=== PATIENT | male | born 1975 | race Caucasian/White ===

== ENCOUNTER 2025-02-20 20:02 | Inpatient (IN) | payer MEDICARE, SELFPAY ==
--- OUTSIDE RECORDS SUMMARY | 2025-02-19 10:31 | XMS_ITS | Encounter Summary ---
Author Organization [facility] Address [id number] [place] [id number] Care Team Providers Care Auditing Manager Name Role Phone Physician, No Pcp Primary Care Provider Unavaila ble Reason for Visit * Reason Comments Psychiatric Evaluation Has schizophrenia Hearing voicesNo meds in a few days Encounter Details Date Type Department Care Team (Late st Contact Info) Description 02/19/2025 10:31 AM EDT - Present Emergency [facility] Emergency [address] [place] [id number] Bhargav Yanez MD [address] [place] [id number] Bhargav Sun MD [address] [place] [address] Maxwell De La Garza MD [address] [place] [address] Jacob Malone MD [address] [place] [address] José Luis Anand MD [address] [place] [address] Schizophrenia, unspecified type (CMS/HCC V24, CMS/HCC V28) (Primary Dx) Social History Tobacco Use Types Packs/Day Years Used Date Smoking Tobacco: Never Assessed Sex and Gender Information Value Date Recorded Sex Assigned at Not on file Legal Sex Male 8:41 PM EST Gender Identity Not on file Sexual Orientation Not on file documented as of this encounter Last Filed Vital Signs Vital Sign Reading Time Taken Comments Blood Pressure 121/78 02/20/2025 2:02 PM EDT Pulse 65 02/20/2025 2:02 PM EDT Temperature 36.8 C (98.2 F) 02/20/2025 2:02 PM EDT Respiratory Rate 16 02/20/2025 2:02 PM EDT Oxygen Saturation 100% 02/20/2025 2:02 PM EDT Inhaled Oxygen Concentration - - Weight 83.9 kg (185 lb) 02/19/2025 10:25 AM EDT Height 190.5 cm (6' 3 ) 02/19/2025 10:25 AM EDT Body Mass Index 23.12 02/19/2025 10:25 AM EDT documented in this encounter Functional Status * Calculated C-SSRS Risk Score (Lifetime/Recent) Answer Date of Assessment Author No Risk Indicated 02/20/2025 12:22 PM EDT Carmen Mccarty RN * [place] Suicide Severity Rating Scale (Screener/Recent Self-Report) Question Answer Date of Assessment Author 1. Wish to be (Past 1 Month) No 025 12:22 PM EDT Carmen Pompa RN 2. Non-Specific Active Suici shweta Thoughts (Past 1 Month) No 02/20/2025 12:22 PM EDT Jenny Pompa RN 6. Suicidal Behavior (Lifetime) No 12:22 PM EDT Carmen Pompa RN documented as of this encounter Progress Notes * Jerica Nazario - 02/20/2025 2:56 PM EDT BED FOUND - Patient accepted to [facility], unit M3, by Dr Roxana Velazquez for today 02/20/25; 5pm admission time * Jacob Malone MD - 02/20/2025 7:25 AM EDT ED Course as of 02/20/25 1504 Wed Feb 19, 2025 1221 Patient resting comfortably. Imaging studies revealing no acute pathology. Laboratory evaluation revealing any significant acute pathology at this time. Patient is otherwise medically cleared. Pending crisis evaluation. [JF] 1934 Presenting for auditory hallucinations x5yrs. He feels that meds aren't working. Denies SI/HI Pending bed search Signed out to night provider [XIAO] [facility] Feb 20, 2025 0205 S/o: Bed search. Here for chronic hallucinations. Can be discharged if they can't find placement. [BM] 0721 I, Dr. Thai Malone, have received signout for this patient from Dr. De La Garza at 0700 hrs. The patient is currently pending inpatient psychiatric bed search. [MG] 1503 Patient accepted to [facility] at my shift for admission at 1700 hrs. [MG] ED Course User Index [BM] Maxwell De La Garza MD [XIAO] Bhargav Sun MD [JF] Bhargav Yanez MD [MG] Jacob Malone MD Clinical Impressions as of 02/20/25 1504 Schizophrenia, unspecified type (CMS/HCC V24, CMS/HCC V28) Send to Specialty Department 1. Schizophrenia, unspecified type (CMS/HCC V24, CMS/HCC V28) Procedures Eriberto Salazar * Maxwell De La Garza MD - 02/20/2025 6:33 AM EDT EMERGENCY DEPARTMENT Transition of Care Note Room: NV-B/NV-B Patient: Eriberto Salazar PCP: No Pcp Physician Patient : 1975 Patient Department: [facility] EMERGENCY [address] [place] [id number] Dept: [phone] This patient's care was signed out to me by the offgoing provider. Please see her/his note for further details regarding initial presentation, history of present illness, physical exam, and medical decision making. Sign out: Pt is a bed search. Here for chronic hallucinations. Can be discharged if they can't findplacement. See ED course for further care events. Vitals: 02/20/25 0138 BP: 118/74 Pulse: 80 Resp: 16 Temp: 37 ??C (98.6 ??F) SpO2: 98% * Sara Medina RN - 02/19/2025 10:26 AM EDT Pt comes to ER with years of hearing voices that are not telling pt to harm himself or others butpt is looking for help. Denies medical complaints at this time. Pt a&ox4, ambulates with steadygait in triage. documented in this encounter Consult Notes * Kerwin York - 02/20/2025 12:00 PM EDT Images from the original note were not included. Behavioral Health Services - Mental Status Update Important times Time assessment started: 1145 Time of disposition: 1215 Location: [facility] Consulted case with: Tiffanie Disla LCSW Insurance information: Insurance: Medicare A+B Medicaid [place] Insurance ID: Med A+B [id number] Medicaid [place] [id number] Verified by: Tiffanie Disla Reason for Consultation / Presenting Problem: Eriberto Salazar is being seen today for a 24 hour re-evaluation due to their state wide bed search being exhausted. Patient denied SI/HI, he reported stillhaving auditory and visual hallucinations. He reported he was continuing to hear voices but couldn't understand them or hear them well. He reported that the visual hallucinations were starting to come into my dreams Collaterals, contact information, and engagement level: Therapist: None reported Psychiatrist: None reported PCP: None reported Family: None reported Other: None reported Mental Status Speech: WNL Eye Contact: Intermittent Motor Activity: WNL Mood: WNL Affect: Appropriate Sleep: Poor He reported that the voices could make it hard to sleep at times Appetite: WNL Memory: WNL Attention / Concentration: WNL Behavior: Cooperative and Calm Hallucinations: Auditory and Visual Delusions: None Thought Content: WNL SI: Denied HI: Denied Thought Process: WNL Orientation Impairment: None Insight: WNL Judgment: WNL Impulse Control: WNL Medications: Scheduled Meds: MEDSSCHEDULED[1] Continuous Infusions: MEDSCONTINUOUS[2] PRN Meds: MEDSPRN[3] Patient reported that he stopped taking his medications several ago after they ran out from his admission at [facility]. Risk Assessment: Self-Harm: None Suicidal Behavior: None Homicidal Behavior: None Physical Assault: None Physical Aggression: None Property Damage: None Verbal Aggression: None Family history of suicide: None reported Protective Factors: Patient is help-seeking. Patient is able to advocate for himself. Patient is able to access his basic needs. He has a plan for after placement, wants to connect with a gearcase assembler. Risk Factors: Patient is unhoused. Patient is not medication compliant. Patient does not have outpatient mental health providers. Patient is new to the area and does not know resources available. Suicide Risk: Based on patient's history and current presentation, their level of risk for intentional lethal harm is considered Low Safety Plan Completed: no No safety plan completed while patient is a bed search. Interventions: Risk/crisis assessment, active listening, empathetic listening. Response to interventions: Patient was cooperative, engaged, and aligned with speaking with crisis. DSM-5TR Diagnosis: F29 Unspecified Schizophrenia Spectrum and other Psychotic Disorder Plan: Based on the information above, patient would benefit from a voluntary inpatient psychiatric admission for safety and containment, mood stabilization, medication evaluation, therapeutic milieu, and coordination with outpatient and community supports. Upon discharge, patient would benefit from a plan to encourage medication compliance in the community. Should patient decide to discharge he does not need to be re-evaluated by behavioral health. Recommendations were discussed with requesting provider. It was a pleasure to assist Eriberto Salazar here at [facility]. This report is written and finalized by: Kerwin SABILLON process engineering intern Supervised by Lizz PHILLIPS, Behavioral Health Specialist power press supervisor [facility] (Tel): [phone] / : [phone] [1] [2] [3] Cosigned by Tiffanie Disla LCSW at 02/20/2025 12:26 PM EDT * Prashanth Pierre - 02/19/2025 1:54 PM EDTAssociated Order(s): IP CONSULT TO [facility] Images from the original note were not included. Behavioral Health Services - Crisis Assessment Important times Time of arrival: 10:21 Time of referral: 10:30 Time of readiness: 12:55 Time assessment started: 13:00 Time of disposition: 14:00 Location: Emergency Room (ER) Consulted case with: Tiffanie Disla NETEZZA ARCHITECT Insurance information: Insurance: Member Not Eligible, [place] - Per patient, he has [place] insurance Verified by: [facility] [place] - Tiffanie Disla Reason for Consultation / Presenting Problem: Eriberto Salazar is being seen today for a consultive service at the request of Bhargav Yanez MD to assess risk and identify appropriate level of care. Patient arrived reporting AH for the past 20 years and expressing that he would like support. During assessment, patient was able to articulate that the voices sound like different people but struggled with what they talk about. Patient continued to report that he can't connect his thoughts. Patientreported that he came [place] to [place] from [place] this morning and does not have housing or resources in the area. He denied SI/HI. He reported to having VH only when he is asleep. History of Present Illness: Eriberto is a 49 y.o. male with Chief Complaint Patient presents with Psychiatric Evaluation Has schizophrenia Hearing voices No meds in a few days Social/Educational History: Guardian - if Yes, provide contact information: No Status: No State Agency Involvement: None Cezar's Order: No Marital Status: Single Alternative Placement Details: None Living Situation for patient: Homeless Household Members/Age: Patient is unhoused and does not live with anybody. Friendships/Family/Social Peer Support/Relationships: Patient denied social and familial supports despite S attempting multiple times to obtain information. 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 Patient is able to advocate for himself. Patient is able to access his basic needs. Collaterals, contact information, and engagement level: Therapist: None reported Psychiatrist: None reported PCP: None reported Family: None reported Other: None reported Mental Status Speech: WNL Eye Contact: WNL Motor Activity: WNL Mood: Depressed Affect: Flat Sleep: Fair Appetite: Poor Memory: Mild Impairment Attention / Concentration: WNL Behavior: Cooperative and Calm Appearance: Hallucinations: Auditory and Visual Delusions: None Thought Content: WNL SI: Denied HI: Denied Thought Process: Flight of Ideas Orientation Impairment: None Insight: Fair Judgment: Fair Impulse Control: Poor Substance Use History (Including family history): Patient reported that 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 He stated that he drank this weekend and that when he drinks it's usually a beer or two . Patient denied family history of substance use. Utox Results: Utox pending. BAL was normal. Substance Use Treatment History: Patient reported to having been to detox and rehab before. Mental Health Treatment History: Outpatient Mental Health Treatment: Patient denied a history of outpatient mental health treatment. Previous or Current Psychological Diagnosis: Patient reported to having been diagnosed with paranoid schizophrenia in 1993. Prior Psychiatric Hospitalizations/Residential Treatment Facilities: Patient reported to having a history of psychiatric inpatient hospitalizations. His most recent was at [facility] last week for a few days. Other Comments Regarding Mental Health Treatment History: None Mental Health Concerns in Family: None reported Trauma History: Patient denied history of abuse or trauma. Medications: Scheduled Meds: MEDSSCHEDULED[1] Continuous Infusions: MEDSCONTINUOUS[2] PRN Meds: MEDSPRN[3] Patient reported that he stopped taking his medications two days ago after they ran out from his admission at [facility]. Risk Assessment: Self-Harm: None Suicidal Behavior: None Homicidal Behavior: None Physical Assault: None Physical Aggression: None Property Damage: None Verbal Aggression: None Family history of suicide: None reported Protective Factors: Patient is help-seeking. Patient is able to advocate for himself. Patient is able to access his basic needs. Risk Factors: Patient is unhoused. Patient is not medication compliant. Patient does not have outpatient mental health providers. Suicide Risk: Based on patient's history and current presentation, their level of risk for intentional lethal harm is considered Low Safety Plan Completed: no No safety plan completed due to patient being an inpatient bed search. Interventions: Risk/crisis assessment, active listening, empathetic listening, resources Response to interventions: Patient was cooperative, engaged, and aligned with speaking with S. DSM-5TR Diagnosis: F29 Unspecified Schizophrenia Spectrum and other Psychotic Disorder Plan: Based on the information above, patient would benefit from a voluntary inpatient psychiatric admission for safety and containment, mood stabilization, medication evaluation, therapeutic milieu, and coordination with outpatient and community supports. Upon discharge, patient would benefit from a plan to encourage medication compliance in the community. Should patient decide to discharge he does not need to be re-evaluated by behavioral health. Recommendations were discussed with requesting provider. It was a pleasure to assist Eriberto Salazar here at [facility]. This report is written and finalized by: Prashanth Pierre Behavioral Health Specialist [facility] (Tel): [phone] / : [phone] [1] [2] [3] documented in this encounter Plan of Treatment Not on file documented as of this encounter Procedures * The patient is currently admitted. The information in this section might not be complete until the patient is discharged. Procedure Name Priority Date/Time Associated Diagnosis Comments ECG 12-LEAD STAT 02/20/2025 2:02 PM EDT DRUG ABUSE SCREEN 8A PANEL, URINE STAT 02/19/2025 4:[address] HEAD WO CONTRAST STAT 02/19/2025 1 1:25 AM EDT CBC WITH AUTO DIFFERENTIAL STAT 02/19/2025 10:57 AM EDT CBC AND DIFFERENTIAL STAT 02/19/2025 10:57 AM EDT ETHANOL STAT 02/19/2025 10:57 AM EDT COMPREHENSIVE METABOLIC PANEL STAT 02/19/2025 10:57 AM EDT documented in this encounter Results * ECG 12 lead (02/20/2025 2:02 PM EDT) Ventricular Rate ECG 76 BPM GEMUSE Atrial Rate 76 BPM GEMUSE P-R Interval 146 ms GEMUSE QRS Duration 84 ms GEMUSE Q-T Interval 388 ms GEMUSE QTc 436 ms GEMUSE P Wave Union 35 degrees GEMUSE R Union -7 degrees GEMUSE T Union 29 degrees GEMUSE ECG Interpretation Normal sinus rhythm Normal ECG No previous ECGs available Confirmed by Charline MARKS YUFENG ([id number]) on 02/20/2025 5:35:40 PM GEMUSE 02/20/2025 2:02 PM EDT 02/20/2025 5:35 PM EDT us Jacob Malone MD ECG ORDERABLES Final Result GEMUSE * (ABNORMAL) Drug abuse screen 8a panel, urine (02/19/2025 4:43 PM EDT) Pathologist [facility] Amphetamine Screen, Ur Negative Negative LAB CHEMISTRY METHOD 5 5:13 PM EDT [facility] Comment:Certain OTC medicati ons containing ephedrine, phenylephrine, pseudoephedrine and phenylpropanolamine can cause false positive results. Barbiturate Screen, Ur Negative Negative LAB CHEMISTRY METHOD 5 5:13 PM EDT [facility] Benzodiazepine Screen, Ur Negative Negative LAB CHEMISTRY METHOD 5 5:13 PM EDT [facility] Cocaine Screen, Ur Positive(A ) Negative LAB CHEMISTRY METHOD 5 5:13 PM EDT [facility] Opiate Screen, Ur Negative Negative LAB CHEMISTRY METHOD 5 5:13 PM EDT [facility] Cannabinoid (THC) Screen, Ur Negative Negative LAB CHEMISTRY METHOD 5 5:13 PM [facility] Comment:Specimens from patie nts taking pantoprazole sodium (Protonix) have been shown to produce false positive results. Oxycodone Screen, Ur Negative Negative LAB CHEMISTRY METHOD 5:13 PM EDT [facility] Fentanyl, Ur Negative Negative LAB CHEMISTRY METHOD 5:13 PM EDT [facility] Urine Urine specimen obtained by clean catch procedure / Unknown Non-blood Collection / Unknown 02/19/2025 4:43 PM EDT 02/19/2025 4:50 PM EDT Narrative [facility] - 02/19/2025 5:13 PM EDT Assay cutoffs: Amphetamines 1000 ng/mL Barbiturates 200 ng/mL Benzodiazepines 200 ng/mL Cocaine 300 ng/mL Fentanyl 1 ng/mL Opiates 300 ng/mL Oxycodone 100 ng/mL THC 50 ng/mL Semi-quantitative assay for screening purposes only. Unconfirmed screening result should not be used for non-medical purposes. *ALTERNATE METHOD CONFIRMATION DONE UPON REQUEST ONLY* Bhargav Yanez MD LAB URINE ORDERABLES Final Res ult [facility] [address] [place] [address], [place] [phone] * CT Head wo Contrast (02/19/2025 11:25 AM EDT) Anatomical Region Laterality Modality Head and Neck Computed Tomogra phy 02/19/2025 12:0 2 PM EDT Impressions 02/19/2025 12:03 PM EDT No evidence of acute intracranial process on noncontrast head CT. -------- FINAL REPORT -------- Dictated By: Diego Sanchez Dictated Date: 02/19/2025 12:02 ET Assigned Physician: Diego Sanchez Reviewed and Electronically Signed By: Diego Sanchez Signed Date: 02/19/2025 12:03 ET Workstation ID: [id number] Transcribed By: Self Edit Transcribed Date: 02/19/2025 12:02 ET Narrative 02/19/2025 12:03 PM EDT INDICATION: Auditory hallucinations Technique: Axial images were obtained from the skull base to the vertex without contrast enhancement. Scanner: [employer] LightSpeed 64 slice VCT Dose reduction technique: ASIR (Adaptive statistical iterative reconstruction) Dose: total exam DLP 808 mGY per cm Comparison: No prior studies available for comparison. FINDINGS: Intracranial contents: No acute intracranial hemorrhage, midline shift or mass-effect. The ventricles, sulci, sylvian fissures and basilar cisterns are symmetric and normal in size and shape for the patients age. No abnormal intra or extra-axial fluid collections. Bony structures/soft tissues: Within normal limits. Sinuses: Paranasal sinuses are clear. Mastoid air cells are well aerated. Procedure Note Diego Sanchez MD - 02/19/2025 INDICATION: Auditory hallucinations Technique: Axial images were obtained from the skull base to the vertexwithout contrast enhancement. Scanner: [employer] LightSpeed 64 slice VCT Dose reduction technique: ASIR (Adaptive statistical iterativereconstruction) Dose: total exam DLP 808 mGY per cm Comparison: No prior studies available for comparison. FINDINGS: Intracranial contents: No acute intracranial hemorrhage, midline shift ormass- effect. The ventricles, sulci, sylvian fissures and basilar cisternsare symmetric and normal in size and shape for the patients age. Noabnormal intra or extra-axial fluid collections. Bony structures/soft tissues: Within normal limits. Sinuses: Paranasal sinuses are clear. Mastoid air cells are wellaerated. IMPRESSION: No evidence of acute intracranial process on noncontrast head CT. -------- FINAL REPORT -------- Dictated By: Diego Sanchez Dictated Date: 02/19/2025 12:02 ET Assigned Physician: Diego Sanchez Reviewed and Electronically Signed By: Diego Sanchez Signed Date: 02/19/2025 12:03 ET Workstation ID: [id number] Transcribed By: Self Edit Transcribed Date: 02/19/2025 12:02 ET us Bhargav Yanez MD IMG CT PROCEDURES Final Result * (ABNORMAL) CBC auto differential (02/19/2025 10:57 AM EDT) WBC 4.7(L) 4.8 - 10.8 K/mcL LAB HEMETOLOGY METHOD 02/19/2025 11:13 AM [facility] RBC 4.40(L) 4.50 - 5.50 M/mcL LAB HEMETOLOGY METHOD 02/19/2025 11:13 AM [facility] Hemoglobin 13.0(L) 13.5 - 17.5 g/dL LAB HEMETOLOGY METHOD 02/19/2025 11:13 AM [facility] Hematocrit 38.6(L) 42.0 - 54.0 % LAB HEMETOLOGY METHOD 02/19/2025 11:13 AM [facility] MCV 87.1 79.0 - 98.0 FL LAB HEMETOLOGY METHOD 02/19/2025 11:13 AM [facility] MCH 29.3 27.0 - 32.0 pcg LAB HEMETOLOGY METHOD 02/19/2025 11:13 AM [facility] MCHC 33.7 32.0 - 37.0 g/dL LAB HEMETOLOGY METHOD 02/19/2025 11:13 AM [facility] RDW 13.3 11.0 - 15.0 % LAB HEMETOLOGY METHOD 02/19/2025 11:13 AM [facility] Platelets 239 130 - 400 K/mcL LAB HEMETOLOGY METHOD 02/19/2025 11:13 AM [facility] MPV 9.6 7.0 - 11.0 FL LAB HEMETOLOGY METHOD 02/19/2025 11:13 AM [facility] NRBC 0.0 <1.0 % LAB HEMETOLOGY METHOD 02/19/2025 11:13 AM [facility] NRBC Absolute 0.00 <0.10 K/mcL LAB HEMETOLOGY METHOD 02/19/2025 11:13 AM [facility] Neutrophils Relative 60.6 % LAB HEMETOLOGY METHOD 02/19/2025 11:13 AM [facility] Lymphocytes Relative 31.4 % LAB HEMETOLOGY METHOD 02/19/2025 11:13 AM [facility] Monocytes Relative 5.1 % LAB HEMETOLOGY METHOD 02/19/2025 11:13 AM [facility] Eosinophils Relative 2.3 % LAB HEMETOLOGY METHOD 02/19/2025 11:13 AM [facility] Basophils Relative 0.4 % LAB HEMETOLOGY METHOD 02/19/2025 11:13 AM [facility] Immature Granulocytes Relative 0.2 % LAB HEMETOLOGY METHOD 02/19/2025 11:13 AM [facility] Neutrophils Absolute 2.85 1.50 - 7.00 K/mcL LAB HEMETOLOGY METHOD 02/19/2025 11:13 AM [facility] Lymphocytes Absolute 1.48 1.00 - 5.00 K/mcL LAB HEMETOLOGY METHOD 02/19/2025 11:13 AM [facility] Monocytes Absolute 0.24 0.20 - 1.00 K/mcL LAB HEMETOLOGY METHOD 02/19/2025 11:13 AM [facility] Eosinophils Absolute 0.11 0.00 - 0.50 K/mcL LAB HEMETOLOGY METHOD 02/19/2025 11:13 AM [facility] Basophils Absolute 0.02 0.00 - 0.20 K/mcL LAB HEMETOLOGY METHOD 02/19/2025 11:13 AM [facility] Immature Granulocytes Absolute 0.01 0.00 - 0.03 K/mcL LAB HEMETOLOGY METHOD 02/19/2025 11:13 AM [facility] Blood Venous blood specimen / Unknown Venipuncture / Unknown 02/19/2025 10:57 AM EDT 02/19/2025 11:05 AM EDT us Bhargav Yanez MD LAB BLOOD ORDERABLES Final Res ult Performing Organization Address City/[facility]/ZIP Co de Phone Number [facility] [address] [place] [address], [place] [phone] * Ethanol (02/19/2025 10:57 AM EDT) Pathologist [facility] Ethanol Level <3 0 - 10 mg/dL LAB CHEMISTRY METHOD 02/19/2025 12:19 PM EDT [facility] Blood Venous blood specimen / Unknown Venipuncture / Unknown 02/19/2025 10:57 AM EDT 02/19/2025 11:04 AM EDT us Bhargav Yanez MD LAB BLOOD ORDERABLES Final Res ult Performing Organization Address City/[facility]/ZIP Co de Phone Number [facility] [address] [place] [address], [place] [phone] * (ABNORMAL) Comprehensive Metabolic Panel (CMP) (02/19/2025 10:57 AM EDT) [facility] Sodium 138 133 - 145 mmol/L LAB CHEMISTRY METHOD 02/19/2025 12:19 PM EDT [facility] Potassium 4.5 3.5 - 5.5 mmol/L LAB CHEMISTRY METHOD 02/19/2025 12:19 PM EDT [facility] Chloride 103 96 - 110 mmol/L LAB CHEMISTRY METHOD 02/19/2025 12:19 PM EDT [facility] CO2 33(H) 21 - 32 mmol/L LAB CHEMISTRY METHOD 02/19/2025 12:19 PM EDT [facility] Anion Gap 2(L) 3 - 11 LAB CHEMISTRY METHOD 02/19/2025 12:19 PM EDT [facility] Glucose 142(H) 70 - 100 mg/dL LAB CHEMISTRY METHOD 02/19/2025 12:19 PM [facility] BUN 16 5 - 25 mg/dL LAB CHEMISTRY METHOD 02/19/2025 12:19 PM [facility] Creatinine 0.89 0.70 - 1.30 mg/dL LAB CHEMISTRY METHOD 02/19/2025 12:19 PM [facility] eGFR 104 >=60 mL/min/1. 73m2 LAB CHEMISTRY METHOD 02/19/2025 12:19 PM [facility] Comment:Calculation based on the Chronic Kidney Disease Epidemiology Collaboration (CKD-EPI) equation refit without adjustment for race. BUN/Creatinine Ratio 18.0 LAB CHEMISTRY METHOD 02/19/2025 12:19 PM [facility] Calcium 8.9 8.5 - 10.5 mg/dL LAB CHEMISTRY METHOD 02/19/2025 12:19 PM [facility] AST (SGOT) 51(H) 10 - 42 unit/L LAB CHEMISTRY METHOD 02/19/2025 12:19 PM [facility] ALT (SGPT) 36 10 - 60 unit/L LAB CHEMISTRY METHOD 02/19/2025 12:19 PM [facility] Alkaline Phosphatase 77 42 - 121 unit/L LAB CHEMISTRY METHOD 02/19/2025 12:19 PM [facility] Total Protein 6.8 6.0 - 8.0 g/dL LAB CHEMISTRY METHOD 02/19/2025 12:19 PM [facility] Albumin 3.9 3.2 - 5.0 g/dL LAB CHEMISTRY METHOD 02/19/2025 12:19 PM [facility] Total Bilirubin 1.1 0.0 - 1.4 mg/dL LAB CHEMISTRY METHOD 02/19/2025 12:19 PM [facility] Blood Venous blood specimen / Unknown Venipuncture / Unknown 02/19/2025 10:57 AM EDT 02/19/2025 11:04 AM EDT us Bhargav Yanez MD LAB BLOOD ORDERABLES Final Res ult [facility] ([facility]) [facility] [address] [place] [address], documented in this encounter Visit Diagnoses Diagnosis Schizophrenia, unspecified type (CMS/HCC V24, CMS/HCC V28)- Primary documented in this encounter Orders Diet Count Last Ordered Date First Orde red Date ADULT DIET 1 02/20/2025 Nursing Count Last Ordered Date First Orde red Date VITAL SIGNS 1 02/20/2025 Consult Count Last Ordered Date First Orde red Date IP CONSULT TO SLUNK SKINNER 1 02/19/2025 documented in this encounter Care Teams Auditing Manager Relationship Specialty Start Date End Date Physician, No Pcp PCP - General 02/19/25 documented as of this encounter
--- OUTSIDE RECORDS SUMMARY | 2025-02-20 20:06 | XMS_ITS | Clinical Summary ---
Author Organization [facility] Address [address] [place] [address] Phone Care Team Providers Care Seed Buyer Name Role Phone Physician, No Pcp Primary Care Provider Unavaila ble Allergies No known active allergies Medications No known medications Encounters Date Type Department Care Team Description 02/19/2025 10:31 AM EDT - Present Emergency [facility] Emergency [address] [place] [address] Bhargav Yanez MD Deslouches, Joshua, MD Muhoozi, Bannet, MD Goebel, Mathew, MD Zaidi, Mansoor Anwer, MD Schizophrenia, unspecified type (CMS/HCC V24, CMS/HCC V28) (Primary Dx) from Last 3 Months Social History Tobacco Use Types Packs/Day Years Used Date Smoking Tobacco: Never Assessed Sex and Gender Information Value Date Recorded Sex Assigned at Not on file Legal Sex Male 8:41 PM EST Gender Identity Not on file Sexual Orientation Not on file Obstetrics History Last Filed Vital Signs Vital Sign Reading [...] Mass Index 23.12 02/19/2025 10:25 AM EDT Plan of Treatment Health Maintenance Due Date Last Done Comments Colorectal Cancer Screening: Colonoscopy 1973 DTaP,Tdap,and Td Vaccines (1 - Tdap) 1992 Hepatitis B Vaccines (1 of 3 - 19+ 3-dose series) 1992 Pneumococcal Vaccine: 50+ Ye ars (1 of 1 - PCV) 2023 Zoster Vaccines (1 of 2) 2023 Cholesterol Screening (Lipid Panel) 05/19/2023 HIV Screening 05/19/2023 Hepatitis C Screening 05/19/2023 Medicare Annual Wellness Visit 05/19/2023 Social Influencers of Health Screening 05/19/2023 Depression Screening 04/24/2024 COVID-19 Vaccine (1 - 2023-2 5 season) 2024 Influenza Vaccine (#1) 2024 RSV Immunization Adult Patie nts (1 - 1-dose 75+ series) 2048 HIB Vaccines Aged Out No longer eligi ble based on patient's age to complete this topic HPV Vaccines Aged Out No longer eligi ble based on patient's age to complete this topic Hepatitis A Vaccines Aged Out No long er eligible based on patient's age to complete this topic IPV Vaccines Aged Out No longer eligi ble based on patient's age to complete this topic MMR Vaccines Aged Out No longer eligi ble based on patient's age to complete this topic Meningococcal ACWY Vaccine Aged Out N o longer eligible based on patient's age to complete this topic Meningococcal B Vaccine Aged Out No l onger eligible based on patient's age to complete this topic RSV Immunization Patients Un luigi 20 months Aged Out No longer eligible b ased on patient's age to complete this topic Varicella Vaccines Aged Out No longer eligible based on patient's age to complete this topic Procedures * The patient is currently admitted. [...] METABOLIC PANEL STAT 02/19/2025 10:57 AM EDT from Last 3 Months Results * ECG 12 lead (02/20/2025 2:02 PM EDT) [facility] [address] Ventricular Rate ECG 76 BPM GEMUSE Atrial Rate 76 BPM GEMUSE P-R Interval 146 ms GEMUSE QRS Duration 84 ms GEMUSE Q-T Interval 388 ms GEMUSE QTc 436 ms GEMUSE P Wave [place] 35 degrees GEMUSE R [place] -7 degrees GEMUSE T [place] 29 degrees GEMUSE ECG Interpretation Normal sinus rhythm Normal ECG No previous ECGs available Confirmed by Charline MARKS, DAYLIN ([id number]) on 02/20/2025 5:35:40 PM GEMUSE 02/20/2025 2:02 PM EDT 02/20/2025 5:35 PM EDT us Jacob Malone MD ECG ORDERABLES Final Result GEMUSE * (ABNORMAL) Drug abuse screen 8a panel, urine (02/19/2025 4:43 PM EDT) [facility] [address] Amphetamine Screen, Ur Negative Negative LAB CHEMISTRY METHOD 5:13 PM EDT [facility] Comment:Certain OTC medicati ons containing ephedrine, phenylephrine, pseudoephedrine and phenylpropanolamine can cause false positive results. Barbiturate Screen, Ur Negative Negative LAB CHEMISTRY METHOD 5 5:13 PM EDT [facility] Benzodiazepine Screen, Ur Negative Negative LAB CHEMISTRY METHOD 5:13 PM EDT [facility] Cocaine Screen, Ur Positive(A ) Negative LAB CHEMISTRY METHOD 5 5:13 PM EDT [facility] Opiate Screen, Ur Negative Negative LAB CHEMISTRY METHOD 5 5:13 PM EDT [facility] Cannabinoid (THC) Screen, Ur Negative Negative LAB CHEMISTRY METHOD 5 5:13 PM EDT [facility] Comment:Specimens from patie nts taking pantoprazole sodium (Protonix) have been shown to produce false positive results. Oxycodone Screen, Ur Negative Negative LAB CHEMISTRY METHOD 5 5:13 PM EDT [facility] Fentanyl, Ur Negative Negative LAB CHEMISTRY METHOD 5 5:13 PM EDT [facility] Urine Urine specimen obtained by clean catch procedure / Unknown Non-blood Collection / Unknown 02/19/2025 4:43 PM EDT 02/19/2025 4:50 PM EDT Narrative [facility] - 02/19/2025 5:13 PM EDT Assay cutoffs: Amphetamines 1000 ng/mL Barbiturates 200 ng/mL Benzodiazepines 200 ng/mL Cocaine 300 ng/mL Fentanyl 1 ng/mL Opiates 300 ng/mL Oxycodone 100 ng/mL THC 50 ng/mL Semi-quantitative assay for screening purposes only. Unconfirmed screening result should not be used for non-medical purposes. *ALTERNATE METHOD CONFIRMATION DONE UPON REQUEST ONLY* us Bhargav Yanez MD LAB URINE ORDERABLES Final Res ult [facility] [address] [place] [address], * CT Head wo Contrast (02/19/2025 11:25 [...] Signed Date: 02/19/2025 12:03 ET Workstation ID: [id number] Transcribed By: Self Edit Transcribed Date: 02/19/2025 [...] base to the vertexwithout contrast enhancement. Scanner: [id number] LightSpeed 64 slice VCT Dose reduction technique: [...] CT. -------- FINAL REPORT -------- Dictated By: Daniel, Parshant Dictated Date: 02/19/2025 12:02 ET Assigned Physician: Diego Sanchez Reviewed and Electronically Signed By: Diego Sanchez Signed Date: 02/19/2025 12:03 ET Workstation ID: [id number] Transcribed By: Self Edit Transcribed Date: 02/19/2025 12:02 ET Bhargav Yanez MD IMG CT PROCEDURES Final Result * (ABNORMAL) CBC auto differential (02/19/2025 10:57 AM EDT) [facility] [address] [facility] WBC 4.7(L) 4.8 - 10.8 K/mcL LAB HEMETOLOGY METHOD 02/19/2025 11:13 AM [facility] RBC 4.40(L) 4.50 - 5.50 M/mcL LAB HEMETOLOGY METHOD 02/19/2025 11:13 AM [facility] Hemoglobin 13.0(L) 13.5 - 17.5 g/dL LAB HEMETOLOGY METHOD 02/19/2025 11:13 AM [facility] Hematocrit 38.6(L) 42.0 - 54.0 % LAB HEMETOLOGY METHOD 02/19/2025 11:13 AM [facility] MCV 87.1 79.0 - 98.0 FL LAB HEMETOLOGY METHOD 02/19/2025 11:13 AM [facility] MCH 29.3 27.0 - 32.0 pcg LAB HEMETOLOGY METHOD 02/19/2025 11:13 AM [facility] MCHC 33.7 32.0 - 37.0 g/dL LAB HEMETOLOGY METHOD 02/19/2025 11:13 AM [facility] RDW 13.3 11.0 - 15.0 % LAB HEMETOLOGY METHOD 02/19/2025 11:13 AM [facility] Platelets 239 130 - 400 K/mcL LAB HEMETOLOGY METHOD 02/19/2025 11:13 AM [facility] MPV 9.6 7.0 - 11.0 FL LAB HEMETOLOGY METHOD 02/19/2025 11:13 AM [facility] NRBC 0.0 <1.0 % LAB HEMETOLOGY METHOD 02/19/2025 11:13 AM [facility] NRBC Absolute 0.00 <0.10 K/mcL LAB HEMETOLOGY METHOD 02/19/2025 11:13 AM [facility] Neutrophils Relative 60.6 % LAB HEMETOLOGY METHOD 02/19/2025 11:13 AM [facility] Lymphocytes Relative 31.4 % LAB HEMETOLOGY METHOD 02/19/2025 11:13 AM [facility] Monocytes Relative 5.1 % LAB HEMETOLOGY METHOD 02/19/2025 11:13 AM [facility] Eosinophils Relative 2.3 % LAB HEMETOLOGY METHOD 02/19/2025 11:13 AM [facility] Basophils Relative 0.4 % LAB HEMETOLOGY METHOD 02/19/2025 11:13 AM [facility] Immature Granulocytes Relative 0.2 % LAB HEMETOLOGY METHOD 02/19/2025 11:13 AM [facility] Neutrophils Absolute 2.85 1.50 - 7.00 K/mcL LAB HEMETOLOGY METHOD 02/19/2025 11:13 AM [facility] Lymphocytes Absolute 1.48 1.00 - 5.00 K/mcL LAB HEMETOLOGY METHOD 02/19/2025 11:13 AM [facility] Monocytes Absolute 0.24 0.20 - 1.00 K/mcL LAB HEMETOLOGY METHOD 02/19/2025 11:13 AM [facility] Eosinophils Absolute 0.11 0.00 - 0.50 K/mcL LAB HEMETOLOGY METHOD 02/19/2025 11:13 AM EDT [facility] Basophils Absolute 0.02 0.00 - 0.20 K/[facility] HEMETOLOGY METHOD 02/19/2025 11:13 AM EDT [facility] Immature Granulocytes Absolute 0.01 0.00 - 0.03 K/[facility] HEMETOLOGY METHOD 02/19/2025 11:13 AM EDT [facility] Blood Venous blood specimen / Unknown Venipuncture / Unknown 02/19/2025 10:57 AM EDT 02/19/2025 11:05 AM EDT Bhargav Yanez MD LAB BLOOD ORDERABLES Final Res ult Performing Organization Address [facility]/ZIP Co de Phone Number [facility] [address] [place] [address], [place] [phone] * Ethanol (02/19/2025 10:57 AM EDT) Ethanol Level <3 0 - 10 mg/dL LAB CHEMISTRY METHOD 02/19/2025 12:19 PM EDT [facility] Blood Venous blood specimen / Unknown Venipuncture / Unknown 02/19/2025 10:57 AM EDT 02/19/2025 11:04 AM EDT Bhargav Yanez MD LAB BLOOD ORDERABLES Final Res ult [facility] [address] [place] [address], [place] [phone] * (ABNORMAL) Comprehensive Metabolic Panel (CMP) (02/19/2025 10:57 AM EDT) Sodium 138 133 - 145 mmol/L LAB CHEMISTRY METHOD 02/19/2025 12:19 PM EDT [facility] Potassium 4.5 3.5 - 5.5 mmol/L LAB CHEMISTRY METHOD 02/19/2025 12:19 PM [facility] Chloride 103 96 - 110 mmol/L LAB CHEMISTRY METHOD 02/19/2025 12:19 PM [facility] CO2 33(H) 21 - 32 mmol/L LAB CHEMISTRY METHOD 02/19/2025 12:19 PM [facility] Anion Gap 2(L) 3 - 11 LAB CHEMISTRY METHOD 02/19/2025 12:19 PM [facility] Glucose 142(H) 70 - 100 mg/dL LAB CHEMISTRY METHOD 02/19/2025 12:19 PM [facility] BUN 16 5 - 25 mg/dL LAB CHEMISTRY METHOD 02/19/2025 12:19 PM [facility] Creatinine 0.89 0.70 - 1.30 mg/dL LAB CHEMISTRY METHOD 02/19/2025 12:19 PM [facility] eGFR 104 >=60 mL/min/1. 73m2 LAB CHEMISTRY METHOD 02/19/2025 12:19 PM [facility] Comment:Calculation based on the Chronic Kidney Disease Epidemiology Collaboration (CKD-EPI) equation refit without adjustment for race. BUN/Creatinine Ratio 18.0 LAB CHEMISTRY METHOD 02/19/2025 12:19 PM [facility] Calcium 8.9 8.5 - 10.5 mg/dL LAB CHEMISTRY METHOD 02/19/2025 12:19 PM [facility] AST (SGOT) 51(H) 10 - 42 unit/L LAB CHEMISTRY METHOD 02/19/2025 12:19 PM [facility] ALT (SGPT) 36 10 - 60 unit/L LAB CHEMISTRY METHOD 02/19/2025 12:19 PM [facility] Alkaline Phosphatase 77 42 - 121 unit/L LAB CHEMISTRY METHOD 02/19/2025 12:19 PM [facility] Total Protein 6.8 6.0 - 8.0 g/dL LAB CHEMISTRY METHOD 02/19/2025 12:19 PM EDT [facility] Albumin 3.9 3.2 - 5.0 g/dL LAB CHEMISTRY METHOD 02/19/2025 12:19 PM EDT [facility] Total Bilirubin 1.1 0.0 - 1.4 mg/dL LAB CHEMISTRY METHOD 02/19/2025 12:19 PM EDT [facility] Blood Venous blood specimen / Unknown Venipuncture / Unknown 02/19/2025 10:57 AM EDT 02/19/2025 11:04 AM EDT us Bhargav Yanez MD LAB BLOOD ORDERABLES Final Res ult [facility] [address] [place] [address], [place] [phone] from Last 3 Months Insurance MEDICARE [place] Care Teams Seed Buyer Relationship Specialty Start Date End Date Physician, No Pcp PCP - General 02/19/25
--- OUTSIDE RECORDS SUMMARY | 2025-02-20 20:06 | XMS_ITS | Patient Health Record ---
Author Organization [facility] Address [address] [place] [phone] Care Team Providers Care Stapler Coil Unit Name Role Phone Nisreen Arora Primary Care Provider Allergies No Known Allergies Reason For Referral No Information Medications Medication SIG (Take, Route, Frequency, Duration) Notes Start Date End Date Status cloNIDine HCl 0.1 MG 1 tablet orally daily Active hydrOXYzine HCl 50 MG 1 tablet as needed orally daily Active Methocarbamol 750 MG 1 tablet Orally qhs ; Duration: 10 days 11/23/2022 Active Ibuprofen 600 MG 1 tablet with food o r milk as needed Orally Three times a day; Duration: 10 days 11/23/2022 Active QUEtiapine Fumarate 100 MG 1 tablet at b edtime Orally Once a day; Duration: 30 day(s) 11/23/2022 Active Clobetasol Propionate 0.05 % 1 application Externally Twice a day; Duration: 10 day(s) 11/23/2022 Active hydrOXYzine HCl 50 MG 1 tablet as needed Orally Once a day; Duration: 30 day(s) 11/23/2022 Active Mirtazapine 15 MG 1 tablet at bedtime Orally Once a day; Duration: 30 day(s) 11/23/2022 Active QUEtiapine Fumarate 100 MG 1 tablet at b edtime orally daily Active cloNIDine HCl 0.1 MG 1 tablet Orally Onc e a day; Duration: 30 day(s) 11/23/2022 Active Mirtazapine 15 MG 1 tablet at bedtime orally daily Active Social History Tobacco Use: Social History Observation Description Date Details (start date - stop date) Former Smoker NA - NA Sex Assigned At : Social History Observation Description Sex Assigned At Male * Tobacco Use/Smoking assessment Question Answer Notes Are you a former smoker How long has it been since you last smoked? 1-5 years Alcohol Screen (Audit-C) Question Answer Notes Did you have a drink containing alcohol in the p ast year? No Points 0 Interpretation Negative Sexual History Question Answer Notes Had sex in the past 12 months (vaginal, oral, or anal)? No Problems Problem Type SNOMED Code ICD Code Onset Dates Problem Status W/U Status Risk Notes Problem Posttraumatic stress disorder (10566391) PTSD (post-traumatic stress disorder) (F43.10) Active confirmed Problem Generalized anxiety disorder (65028860) HEATHER (generalized anxiety disorder) (F41.1) Active confirmed Problem Single episode of major depression in full remission (56842002) Major depressive disorder in full remission, unspecified whether recurrent (F32.5) Active confirmed Plan Of Treatment Pending Test Test Name Order Date HIV 1/2 ANTIGEN/ANTIBODY,FOURTH GENERATI ON W/RFL 11/23/2022 LIPID PANEL 11/23/2022 HEPATITIS PANEL, ABC W/REFLEX TO CONFIRM ATION 11/23/2022 COMPREHENSIVE METABOLIC PANEL 11/23/2022 CBC (INCLUDES DIFF/PLT) 11/23/2022 HEMOGLOBIN A1c 11/23/2022 TSH W/REFLEX TO FT4 11/23/2022 CHLAMYDIA/N. GONORRHOEAE RNA, TMA 2022 SYPHILIS ANTIBODY CASCADING REFLEX 11/23 Insurance Providers Payer Name Payer Address Payer Phone Subscriber Number Group Number Insured Name Patient Relationship to Insured Coverage Start Date Coverage End Date Medicare A NGS PPS UB [address] [facility] [place], [place] [id number] Eriberto Salazar Self - patient is the insured [facility] Qualified Medicare ART SEC [address] [place], [place] [id number] Eriberto Salazar Self - patient is the insured Medical (General) History Medical History History ICD Code Anxiety Depression
--- OUTSIDE RECORDS SUMMARY | 2025-02-20 20:06 | XMS_ITS | Clinical Summary ---
Author Organization [facility] Address [address] [id number] Care Team Providers Care Plug Overwrap Machine Tender Name Role Phone Unavailable Primary Care Provider Unavailabl e Medications Medication Sig Dispensed Refills Start Date End Date Status mirtazapine (REMERON DARIEL-TAB) 15 MG disintegrating tablet Take 1 tablet (15 mg total) by mouth every night at bedtime. 30 tablet 0 11/28/2022 Active Active Problems No known active problems Social History Tobacco Use Types Packs/Day Years Used Date Smoking Tobacco: Never Assessed Sex and Gender Information Value Date Recorded Sex Assigned at Male 11/28/2022 6:33 PM EDT Gender Identity Not on file Sexual Orientation Not on file Job Start Date Occupation Industry Not on file Not on file Not on file Last Filed Vital Signs Vital Sign Reading Time Taken Comments Blood Pressure 140/94 11/28/2022 3:30 PM EDT Pulse 83 11/28/2022 3:30 PM EDT Temperature 35.9 C (96.6 F) 11/28/2022 3:30 PM EDT Respiratory Rate 14 11/28/2022 3:30 PM EDT Oxygen Saturation 95% 11/28/2022 3:30 PM EDT Inhaled Oxygen Concentration - - Weight 90.7 kg (200 lb) 11/28/2022 3:30 PM EDT Height 188 cm (6' 2 ) 11/28/2022 3:30 PM EDT Body Mass Index 25.68 11/28/2022 3:30 PM EDT Plan of Treatment Not on file
[2025-02-20 20:16] VITALS: BP 142/72; PULSE 72; RESP 16; TEMP 36.9; O2SAT 97
[2025-02-20 22:28] VITALS: BP 131/93
--- NOTE | 2025-02-21 04:02 | PC.ADMIT ---
Eriberto, a 49 year old male was admitted to the unit on a? CV, as a transfer from [facility]. Psychiatric history of schizophrenia and denies any current medical conditions. Eriberto reports experiencing persistent auditory hallucinations for the past 20 years, describing the voices as nonsensical and constant. He denies command hallucinations and states the voices do not instruct him to harm himself or others. He expresses a desire to have his medications stabilize this admission to better manage these symptoms and needs help to find a place to live post discharge. Reports last psychiatric hospitalization was five years ago. Eriberto denies suicidal and homicidal ideation at this time. He reports anxiety and depression, both rated at 7/10. He states he feels safe on the unit and is able to alert staff if is feeling unsafe. On assessment, is alert and oriented x 4, steady, gait, presents with a flat affect, is guarded, preoccupied, and appears to be responding to internal stimuli. Speech normal tone and clear, poor eye contact. Cooperative with vital signs and skin checks verified home medications. Social history: Eriberto reported he was recently released from incarceration one month ago after serving two and a half years for assault. He reports being currently unemployed and homeless, with no family or social support. He does not have a primary care provider or psychiatrist. He denies current use of marijuana, tobacco, alcohol, or other recreational substances; however, urine toxicology from [facility] was positive for cocaine and EBAL was <3 mg/dL. He was oriented to unit and routines, placed on 15-minute safety checks for monitoring. Refer to crisis evaluation for further details and treatment planning.
[2025-02-21 07:44] VITALS: BP 122/77; PULSE 72; RESP 14; TEMP 36.3; O2SAT 93
--- NOTE | 2025-02-21 08:18 | HO.PM.IMCN ---
History of Present Illness Data of Consult Service Date: 02/21/25 Primary Care Provider: None Physician HPI Reason for consult: Medical consult 49-year-old male with a past medical history of schizophrenia presented to the emergency department with auditory hallucinations. CMP without significant electrolyte imbalances, no evidence of liver or renal injury. CBC with mild anemia, no leukocytosis. Tox screen positive for cocaine. Head CT with no evidence of acute intracranial process. Patient denies any medical concerns. Review of Systems Review of Systems: Denies any shortness of breath, chest pain, headaches, dysuria, abdominal pain or discomfort, nausea, vomiting or diarrhea. Denies fever or chills. PMFSH Social History Household Members: None Housing: Homeless Do you presently have visiting nurse or other home services: No Patient Tobacco Use Status: Never used Tobacco Smoked in Last 30 Days: No e-Cigarette/Vaping Use: Never Used Patient Interested in Nicotine Replacement: No Patient Given Instructions on How to Stop Smoking: No Second Hand Smoke Exposure: No Currently Displaying Signs/Symptoms of Drug Intoxication Withdrawal: No Have you been hit, kicked, punched, or otherwise hurt by someone within the past year? If so, by whom?: No Do you feel safe in your current relationship?: No Current Relationship Is there a partner from a previous relationship who is making you feel unsafe now?: No Are you made to feel afraid or neglected: No Advance Directives: No Advance Directives Information Provided: No Do you have thoughts of harming others: None Do you have a plan to hurt others: No Plan Recently lost weight without trying: No Eating poorly because of decreased appetite: No Nutrition Risks: No Nutritional Risk Poor oral hygiene: No service: No Sexual orientation: Straight/Heterosexual Meds Allergies Allergy/AdvReac Type Severity Reaction Status Date / Time No Known Drug Allergies Allergy None Verified 02/20/25 22:26 Active Medications: Current Medications Acetaminophen (Acetaminophen 325 Mg Tablet) 650 mg PO Q6H PRN PRN Reason: Headache/Pain, Scale 1-10 Al Hydroxide/Mg Hydroxide (Magnesium Hydrox/Alum Hydrox 30 Ml Oral.Susp) 30 ml PO Q6H PRN PRN Reason: Heartburn/Nausea Hydroxyzine HCl (Hydroxyzine Hcl 25 Mg Tablet) 25 mg PO Q6H PRN PRN Reason: mild anxiety Magnesium Hydroxide (Milk Of Magnesia 30 Ml Oral.Susp) 30 ml PO DAILY PRN PRN Reason: Constipation Mirtazapine (Mirtazapine 15 Mg Tablet) 45 mg PO BEDTIME COLBY Last Admin: 02/20/25 22:28 Dose: 45 mg Nicotine Polacrilex (Nicotine Polacrilex 2 Mg Gum) 4 mg BUCCAL Q2H PRN PRN Reason: Nicotine Cravings Olanzapine (Olanzapine 5 Mg Tablet) 5 mg PO Q4H PRN PRN Reason: agitation, psychosis Prazosin HCl (Prazosin Hcl 1 Mg Capsule) 1 mg PO BEDTIME COLBY; Protocol Last Admin: 02/20/25 22:28 Dose: 1 mg Trazodone HCl (Trazodone Hcl 50 Mg Tablet) 50 mg PO BEDTIME MRX1 PRN PRN Reason: Insomnia Home Medications ?Medication ?Instructions ?Recorded ?Confirmed ?Last Taken ?Type clonidine HCl 0.1 mg tablet PO 02/20/25 Unknown History clonidine HCl 0.1 mg tablet PO DAILY 02/20/25 Unknown History mirtazapine 15 mg tablet 15 mg PO BEDTIME 02/20/25 02/20/25 Unknown History mirtazapine 30 mg tablet 30 mg PO BEDTIME 02/20/25 02/20/25 Unknown History prazosin 1 mg capsule 1 mg PO BEDTIME 02/20/25 02/20/25 Unknown History Physical Exam Vital Signs and Narrative: Vital Signs: Last Vital Signs Temp 97.4 F 02/21/25 07:44 Pulse 72 02/21/25 07:44 Resp 14 02/21/25 07:44 BP 122/77 02/21/25 07:44 Pulse Ox 93 02/21/25 07:44 O2 Del Method Room Air 02/21/25 07:44 BMI result Body Mass Index 0.1 Alert and oriented X3, calm and cooperative. Unkempt Neuro: CN II-X11 intact, no deficits, visual acuity intact EYES: PERRLA, EOM intact ENT: Hearing intact, MMM Cardiac: S1 S2 RRR, No ectopy Pulmonary: lungs clear to auscultation, No increased WOB. Abdominal: BS active in all 4 quadrants, no guarding or tenderness MSK: Strength 5/5 upper and lower extremities : Deferred Extremities: No edema in lower extremities Psych: Mood stable, Quiet and cooperative. Skin: Warm and dry, Intact Results Labs Labs: Laboratory Results - last 24 hr 02/21/25 07:56 Estimat Average Glucose 103 Hemoglobin A1c % 5.2 Assessment and Plan (1) Psychosis: Status: Acute Plan 49-year-old with past medical history listed below presented to the [facility] ED with auditory hallucinations. He was medically cleared and is now inpatient psych for stabilization. Schizophrenia/psychosis/auditory hallucinations/cocaine use disorder Treatment per psychiatric team Thank you for allowing me to participate in the care of this patient. Will follow with you, please notify medical provider with any changes in condition or concerns.
[2025-02-21 08:26] LABS: Cholesterol 162 mg/dL (<200); HDL Cholesterol 48 mg/dL (>40); Magnesium 2.1 mg/dL (1.6-2.6); Triglycerides 137 mg/dL (<150)
[2025-02-21 08:43] LABS: Free T4 (Free Thyroxine) 0.92 ng/dL (0.71-1.85); Thyroid Stimulating Hormone 0.59 uIU/mL (0.32-4.0)
[2025-02-21 08:57] LABS: Folate 10.3 ng/mL (> or = 4.0); Vitamin B12 289 pg/mL (200-900)
--- NOTE | 2025-02-21 10:06 | HO.PSYADMNOT ---
HPI Date of Service: 02/21/25 Chief Complaint: unspec schizophrenia spectrum Sources of Information: patient interviewed, chart reviewed and crisis/core team assessment reviewed HPI Subjective Notes: Conditional Voluntary Narrative: Mr. Salazar is a 49 yo SWM with h/o schizophrenia who presented to the [facility] ED due to AH. He was transferred to [facility] after undergoing medical clearance for safety and stabilization. U tox was positive for cocaine. CT head w/o contrast was done at [facility] due to the AH, which showed no acute intracranial process. Pt reports I've just got something in my head and reports hearing voices since 1999 that have not subsided w/ multiple med trials. He states I'll try any medication or treatment . He reports that the voices prevent him from doing anything. He endorses depressed mood. Denies SI. He reports that he talks to himself all the time. Something in my head listens . He states the voices started when he was walking down the street in [place] and a weird frequency wave hit me . He hears multiple people but is unable to say what they say. He reports that it's the wrong wave length and wrong person . Pt was recently released from a 2.5 yr incarceration for A&B. He went to another psychiatric hospital after he was released. He is currently homeless and states that he has no supports. He reports that he was prescribed medications in [facility], including clonidine and neurontin. He is currently taking mirtazapine and clonidine. ROS: Reports sleeping 'too much'....~8 hrs at night Denies violent ideation Rose screen- endorses h/o abnormal mood elevations, unclear how long they lasted. Denies h/o decreased need for sleep Endorses h/o trauma. Has frequent nightmares. Past Psychiatric History: Pt does not have an outpatient psychiatrist or therapist Recent inpatient psychiatric admission Prior Med Trials: Pt doesn't recall them all, states he's tried many risperidone- [place] Abilify, Latuda, quetiapine, olanzapine, maybe clozapine, gabapentin. States none of them helped but he's willing to try Seroquel again Medical Evaluation Reviewed: Hospitalist Concepcion Pending [facility] Family History: Unknown Social History: Homeless. Recently released from 2.5 yr incarceration for A&B. Single. No children. Raised [place] Both parents 2-3 yrs ago. Has brother and sister but hasn't spoken to them since parents . 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 Trauma History: Endorses trauma hx Diagnostics Vital Signs (24Hr): Vital Signs - 24 hr 02/20/25 20:16 02/20/25 22:28 02/21/25 07:44 Temperature 98.4 F 97.4 F Pulse Rate 72 72 Respiratory Rate 16 14 Blood Pressure 142/72 H 131/93 H 122/77 Pulse Oximetry 97 93 Oxygen Delivery Method Room Air Room Air BMI result Body Mass Index 0.1 Labs Labs: Laboratory Results - last 48 hr 02/21/25 07:56 Estimat Average Glucose 103 Hemoglobin A1c % 5.2 Magnesium 2.1 Triglycerides 137 Cholesterol 162 LDL Cholesterol, Calc 87 HDL Cholesterol 48 Vitamin B12 289 Folate 10.3 TSH 0.59 Free T4 0.92 EKG EKG: reviewed (NSR) EKG Comment: 02/20/25 NSR QTc 436 ms Imaging Radiology Impressions: CT head w/o contrast was done at [facility] due to the AH, which showed no acute intracranial process. Meds/Allergies Meds Home Medications ?Medication ?Instructions ?Recorded ?Confirmed ?Type clonidine HCl 0.1 mg tablet PO 02/20/25 History clonidine HCl 0.1 mg tablet PO DAILY 02/20/25 History mirtazapine 15 mg tablet 15 mg PO BEDTIME 02/20/25 02/20/25 History mirtazapine 30 mg tablet 30 mg PO BEDTIME 02/20/25 02/20/25 History prazosin 1 mg capsule 1 mg PO BEDTIME 02/20/25 02/20/25 History Allergies Allergies Allergy/AdvReac Type Severity Reaction Status Date / Time No Known Drug Allergies Allergy None Verified 02/20/25 22:26 Mental Status Exam Mental Status Exam Narrative: Appearance: disheveled, hair is unkempt, good eye contact Attitude: Cooperative Speech: somewhat pressured, mumbled Motor activity: Calm and without any tics, tremors or dyskinesias. Steady gait Mood: depressed, anxious Affect: appropriate, constricted Thought process: generally disorganized Thought content: Denies SI/violent ideation. Perception: Endorses AH. does not appear to respond to internal stimuli A/O x 3 Insight: fair Judgment: fair Assessment & Plan Assessment & Plan (1) Psychosis: Status: Acute Code(s): F29 - Unspecified psychosis not due to a substance or known physiological condition (2) Trauma and stressor-related disorder: Status: Acute Code(s): F43.9 - Reaction to severe stress, unspecified (3) Cocaine use disorder: Status: Acute Code(s): F14.10 - Cocaine abuse, uncomplicated Plan Mr. Salazar is a 49 yo SWM with h/o schizophrenia who presented to the [facility] ED due to AH. He was transferred to [facility] after undergoing medical clearance for safety and stabilization. U tox was positive for cocaine. CT head w/o contrast was done at [facility] due to the AH, which showed no acute intracranial process. Plan: Admitted to for safety and stabilization Signed CV 15 min safety checks Admission medical consult pending Labs, EKG & CT head reviewed from [facility] Meds: Continue mirtazapine 45 mg and prazosin 1 mg qhs Start quetiapine 50 mg qhs PRNs- trazodone 50-100 mg qhs for insomnia, quetiapine 50 mg tid for agitation and/or severe anxiety, hydroxyzine 25 mg q 6 hrs prn for mild anxiety Patient educated on: diagnosis, medication risk/benefits and substance abuse Informed Consent: understands Reason for continued inpatient stay Substantial Risk for: inability to function and med/psych decompensation Statement Statement: I have reviewed the history and physical and performed a pertinent examination on my patient. No changes have occurred unless specified. If the History and Physical was not performed prior to admission, the Hospitalist's service will be consulted for completing the admission physical. Time Spent With Patient Time: Total time managing care of this patient today ____ minutes.
--- NOTE | 2025-02-21 12:55 | PC.NURSE ---
Spoke with pt about history of falls and about a fall during hospitalization, he denied both. Pt ambulates independently. Assessed as low fall risk.
[2025-02-21 19:58] VITALS: BP 119/81; PULSE 90; RESP 16; TEMP 36.2; O2SAT 97
[2025-02-22 07:10] VITALS: BP 134/81; PULSE 73; RESP 16; TEMP 36.7; O2SAT 93
--- NOTE | 2025-02-22 12:21 | HO.PSYCHPN ---
Subjective Subjective Date of Service: 02/22/25 Reason For Visit: unspec schizophrenia spectrum Interim History: Chart reviewed, case discussed in morning report Per nursing report- slept 6 hrs Pt reports that he's feeling better overall- less anxious, AH decreased, slept better, denies SI He reports that he experienced some pain in his arms and restlessness prior to taking his evening meds yesterday, which lasted 2-3 hrs. Denies these sx today. He wonders if it's a med SE or related to w/d. vital signs have been stable in past 2 days. MSE: Appearance: disheveled. Good eye contact Attitude:Cooperative Speech: Fluent and wnl in regard to volume, tone, prosody Motor activity: Calm and without any tics, tremors or dyskinesias. Steady gait Mood: as noted above Affect: anxious Thought process: generally goal directed, somewhat disorganized Thought content: as noted above. Perception: Denies AH/VH and does not appear to respond to internal stimuli Insight: fair Judgment: fair Medication Compliance: Yes (PRNs- hydroxyzine 25 mg, trazodone 50 mg, quetiapine 50 mg, tylenol last night ) Diagnostics Vital Signs (24Hr): Vital Signs - 24 hr 02/21/25 19:58 02/22/25 07:10 Temperature 97.1 F 98.0 F Pulse Rate 90 73 Respiratory Rate 16 16 Blood Pressure 119/81 134/81 Pulse Oximetry 97 93 Oxygen Delivery Method Room Air Room Air BMI result Body Mass Index 0.1 Labs Labs: Laboratory Results - last 48 hr 02/21/25 07:56 Estimat Average Glucose 103 Hemoglobin A1c % 5.2 Magnesium 2.1 Triglycerides 137 Cholesterol 162 LDL Cholesterol, Calc 87 HDL Cholesterol 48 Vitamin B12 289 Folate 10.3 TSH 0.59 Free T4 0.92 Medications Medications Current Medications Acetaminophen (Acetaminophen 325 Mg Tablet) 650 mg PO Q6H PRN PRN Reason: Headache/Pain, Scale 1-10 Last Admin: 02/21/25 23:53 Dose: 650 mg Al Hydroxide/Mg Hydroxide (Magnesium Hydrox/Alum Hydrox 30 Ml Oral.Susp) 30 ml PO Q6H PRN PRN Reason: Heartburn/Nausea Hydroxyzine HCl (Hydroxyzine Hcl 25 Mg Tablet) 25 mg PO Q6H PRN PRN Reason: mild anxiety Last Admin: 02/21/25 22:16 Dose: 25 mg Magnesium Hydroxide (Milk Of Magnesia 30 Ml Oral.Susp) 30 ml PO DAILY PRN PRN Reason: Constipation Mirtazapine (Mirtazapine 15 Mg Tablet) 45 mg PO BEDTIME COLBY Last Admin: 02/21/25 20:11 Dose: 45 mg Nicotine Polacrilex (Nicotine Polacrilex 2 Mg Gum) 4 mg BUCCAL Q2H PRN PRN Reason: Nicotine Cravings Prazosin HCl (Prazosin Hcl 1 Mg Capsule) 1 mg PO BEDTIME COLBY; Protocol Last Admin: 02/21/25 20:11 Dose: 1 mg Quetiapine Fumarate (Quetiapine Fumarate 50 Mg Tablet) 50 mg PO BEDTIME COLBY Last Admin: 02/21/25 20:10 Dose: 50 mg Quetiapine Fumarate (Quetiapine Fumarate 50 Mg Tablet) 50 mg PO TID PRN PRN Reason: agitation and/or severe anxiety Last Admin: 02/21/25 22:15 Dose: 50 mg Trazodone HCl (Trazodone Hcl 50 Mg Tablet) 50 mg PO BEDTIME MRX1 PRN PRN Reason: Insomnia Last Admin: 02/21/25 22:15 Dose: 50 mg Allergies Allergies Allergy/AdvReac Type Severity Reaction Status Date / Time No Known Drug Allergies Allergy None Verified 02/20/25 22:26 Assessment & Plan Assessment & Plan (1) Psychosis: Status: Acute Code(s): F29 - Unspecified psychosis not due to a substance or known physiological condition (2) Trauma and stressor-related disorder: Status: Acute Code(s): F43.9 - Reaction to severe stress, unspecified (3) Cocaine use disorder: Status: Acute Code(s): F14.10 - Cocaine abuse, uncomplicated Plan Mr. Salazar is a 49 yo SWM with h/o schizophrenia who presented to the [facility] ED due to AH. He was transferred to [facility] after undergoing medical clearance for safety and stabilization. U tox was positive for cocaine. CT head w/o contrast was done at [facility] due to the AH, which showed no acute intracranial process. Plan: Admitted to for safety and stabilization Signed CV 15 min safety checks Admission medical consult pending Labs, EKG & CT head reviewed from [facility] Meds: Continue mirtazapine 45 mg and prazosin 1 mg qhs Start quetiapine 50 mg qhs PRNs- trazodone 50-100 mg qhs for insomnia, quetiapine 50 mg tid for agitation and/or severe anxiety, hydroxyzine 25 mg q 6 hrs prn for mild anxiety 02/22: Pt reports improvement in anxiety, sleep, AH. Experienced UE pain/restlessness x 2-3 hrs yesterday prior to taking his meds. he wondered if it's related to w/d vs med SE. Vitals stable. Will add clonidine 0.1 mg tid prn for anxiety and/or w/d sx (from cocaine) Reason for continued inpatient stay Substantial Risk for: med/psych decompensation Time Spent With Patient Time: Total time managing care of this patient today ____ minutes.
[2025-02-22 20:00] VITALS: BP 149/90; PULSE 96; RESP 16; TEMP 36.7; O2SAT 99
[2025-02-23 07:52] VITALS: BP 128/88; PULSE 95; RESP 18; TEMP 36.6; O2SAT 98
--- NOTE | 2025-02-23 09:10 | HO.PSYCHPN ---
Subjective Subjective Date of Service: 02/23/25 Reason For Visit: unspec schizophrenia spectrum Interim History: chart reviewed, case discussed w/ nursing staff per nursing report- c/o body aches & runny nose. Declined prns difficult to engage, avoids eye contact somatically focused, c/o reaction to Seroquel, VERDUGO took prns slept 8 hrs said he could feel electricity in his arms when BP was checked Pt asked t/w to taper him off the nighttime medication, which he thought was perphenazine (not ordered). States that he again had severe arm pain that interfered w/ his ability to sleep after receiving bedtime meds. States that he had akathisia before, which is what it felt like. T/W informed him that Seroquel was ordered and agreed to d/c it, which he appreciated. Pt denies AH. States that he does talk to himself and I need to stop doing that Denies SI/violent ideation MSE: Appearance: Poor grooming- long hair is unkempt. Dressed in [facility]. Good eye contact Attitude:Cooperative Speech: Fluent and wnl in regard to volume, tone, prosody Motor activity: Calm and without any tics, tremors or dyskinesias. Mood: 'okay' Affect: appropriate, somewhat odd Thought process: generally goal directed Thought content: as noted above. Perception: Denies AH/VH and does not appear to respond to internal stimuli Insight: fair Judgment: fair Medication Compliance: Yes (took prn trazodone and vistaril) Diagnostics Vital Signs (24Hr): Vital Signs - 24 hr 02/22/25 20:00 02/23/25 07:52 Temperature 98.1 F 97.8 F Pulse Rate 96 95 Respiratory Rate 16 18 Blood Pressure 149/90 H 128/88 Pulse Oximetry 99 98 Oxygen Delivery Method Room Air Room Air BMI result Body Mass Index 0.1 Medications Medications Current Medications Acetaminophen (Acetaminophen 325 Mg Tablet) 650 mg PO Q6H PRN PRN Reason: Headache/Pain, Scale 1-10 Last Admin: 02/22/25 22:12 Dose: 650 mg Al Hydroxide/Mg Hydroxide (Magnesium Hydrox/Alum Hydrox 30 Ml Oral.Susp) 30 ml PO Q6H PRN PRN Reason: Heartburn/Nausea Clonidine HCl (Clonidine Hcl 0.1 Mg Tablet) 0.1 mg PO TID PRN; Protocol PRN Reason: anxiety and/or withdrawal sx Last Admin: 02/22/25 20:47 Dose: 0.1 mg Hydroxyzine HCl (Hydroxyzine Hcl 25 Mg Tablet) 25 mg PO Q6H PRN PRN Reason: mild anxiety Last Admin: 02/22/25 20:32 Dose: 25 mg Magnesium Hydroxide (Milk Of Magnesia 30 Ml Oral.Susp) 30 ml PO DAILY PRN PRN Reason: Constipation Mirtazapine (Mirtazapine 15 Mg Tablet) 45 mg PO BEDTIME COLBY Last Admin: 02/22/25 20:32 Dose: 45 mg Nicotine Polacrilex (Nicotine Polacrilex 2 Mg Gum) 4 mg BUCCAL Q2H PRN PRN Reason: Nicotine Cravings Prazosin HCl (Prazosin Hcl 1 Mg Capsule) 1 mg PO BEDTIME COLBY; Protocol Last Admin: 02/22/25 20:33 Dose: 1 mg Quetiapine Fumarate (Quetiapine Fumarate 50 Mg Tablet) 50 mg PO BEDTIME COLBY Last Admin: 02/22/25 20:32 Dose: 50 mg Quetiapine Fumarate (Quetiapine Fumarate 50 Mg Tablet) 50 mg PO TID PRN PRN Reason: agitation and/or severe anxiety Last Admin: 02/22/25 20:48 Dose: 50 mg Trazodone HCl (Trazodone Hcl 50 Mg Tablet) 50 mg PO BEDTIME MRX1 PRN PRN Reason: Insomnia Last Admin: 02/23/25 00:27 Dose: 50 mg Allergies Allergies Allergy/AdvReac Type Severity Reaction Status Date / Time No Known Drug Allergies Allergy None Verified 02/20/25 22:26 Assessment & Plan Assessment & Plan (1) Psychosis: Status: Acute Code(s): F29 - Unspecified psychosis not due to a substance or known physiological condition (2) Trauma and stressor-related disorder: Status: Acute Code(s): F43.9 - Reaction to severe stress, unspecified (3) Cocaine use disorder: Status: Acute Code(s): F14.10 - Cocaine abuse, uncomplicated Plan Mr. Salazar is a 49 yo SWM with h/o schizophrenia who presented to the [facility] ED due to . He was transferred to [facility] after undergoing medical clearance for safety and stabilization. U tox was positive for cocaine. CT head w/o contrast was done at [facility] due to the AH, which showed no acute intracranial process. Plan: Admitted to [facility] for safety and stabilization Signed CV 15 min safety checks Admission medical consult pending Labs, EKG & CT head reviewed from [facility]: Continue mirtazapine 45 mg and prazosin 1 mg qhs Start quetiapine 50 mg qhs PRNs- trazodone 50-100 mg qhs for insomnia, quetiapine 50 mg tid for agitation and/or severe anxiety, hydroxyzine 25 mg q 6 hrs prn for mild anxiety 02/22: Pt reports improvement in anxiety, sleep, AH. Experienced UE pain/restlessness x 2-3 hrs yesterday prior to taking his meds. he wondered if it's related to w/d vs med SE. Vitals stable. Will add clonidine 0.1 mg tid prn for anxiety and/or w/d sx (from cocaine) 02/23: D/C'd quetiapine per pt request, felt like it caused akathisia. Otherwise continue current tx plan. Reason for continued inpatient stay Substantial Risk for: med/psych decompensation Time Spent With Patient Time: Total time managing care of this patient today ____ minutes.
[2025-02-23 20:00] VITALS: BP 128/93; PULSE 94; RESP 18; TEMP 37; O2SAT 98
[2025-02-24 07:52] VITALS: BP 138/96; PULSE 87; RESP 18; TEMP 36.8; O2SAT 97
--- NOTE | 2025-02-24 18:54 | P.PNPSI_ITS ---
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 He denies having the arm pain last night since the seroquel was d/c'd. He c/o having a VERDUGO every day and was agreeable w/ taking prn ibuprofen. [place] better after taking it Medication Compliance: Intermittent Mental Status Exam Mental Status Exam Narrative: Appearance: disheveled, good eye contact Attitude:Cooperative Speech: Fluent and wnl in regard to volume, tone, prosody Motor activity: Calm and without any tics, tremors or dyskinesias. Steady gait Mood: okay Affect: appropriate, reactive, brightens up appropriately Thought process: goal directed Thought content: denies SI/violent ideation Perception: does not appear to respond to internal stimuli Insight: fair Judgment: fair Diagnostics Vital Signs (24Hr): Vital Signs - 24 hr 02/23/25 20:00 02/24/25 07:52 Temperature 98.6 F 98.3 F Pulse Rate 94 87 Respiratory Rate 18 18 Blood Pressure 128/93 H 138/96 H Pulse Oximetry 98 97 Oxygen Delivery Method Room Air Room Air BMI result Body Mass Index 0.1 Medications Medications Current Medications Acetaminophen (Acetaminophen 325 Mg Tablet) 650 mg PO Q6H PRN PRN Reason: Headache/Pain, Scale 1-10 Last Admin: 02/24/25 13:03 Dose: 650 mg Al Hydroxide/Mg Hydroxide (Magnesium Hydrox/Alum Hydrox 30 Ml Oral.Susp) 30 ml PO Q6H PRN PRN Reason: Heartburn/Nausea Clonidine HCl (Clonidine Hcl 0.1 Mg Tablet) 0.1 mg PO TID PRN; Protocol PRN Reason: anxiety and/or withdrawal sx Last Admin: 02/22/25 20:47 Dose: 0.1 mg Hydroxyzine HCl (Hydroxyzine Hcl 25 Mg Tablet) 25 mg PO Q6H PRN PRN Reason: mild anxiety Last Admin: 02/22/25 20:32 Dose: 25 mg Ibuprofen (Ibuprofen 600 Mg Tablet) 600 mg PO Q8H PRN PRN Reason: Pain, Moderate(Pain Scale 4-6) Last Admin: 02/23/25 13:20 Dose: 600 mg Magnesium Hydroxide (Milk Of Magnesia 30 Ml Oral.Susp) 30 ml PO DAILY PRN PRN Reason: Constipation Mirtazapine (Mirtazapine 15 Mg Tablet) 45 mg PO BEDTIME COLBY Last Admin: 02/23/25 20:47 Dose: 45 mg Nicotine Polacrilex (Nicotine Polacrilex 2 Mg Gum) 4 mg BUCCAL Q2H PRN PRN Reason: Nicotine Cravings Prazosin HCl (Prazosin Hcl 1 Mg Capsule) 1 mg PO BEDTIME COLBY; Protocol Last Admin: 02/23/25 20:47 Dose: Not Given Quetiapine Fumarate (Quetiapine Fumarate 50 Mg Tablet) 50 mg PO TID PRN PRN Reason: agitation and/or severe anxiety Last Admin: 02/22/25 20:48 Dose: 50 mg Trazodone HCl (Trazodone Hcl 50 Mg Tablet) 50 mg PO BEDTIME MRX1 PRN PRN Reason: Insomnia Last Admin: 02/23/25 00:27 Dose: 50 mg Allergies Allergies Allergy/AdvReac Type Severity Reaction Status Date / Time No Known Drug Allergies Allergy None Verified 02/20/25 22:26 Assessment & Plan Assessment & Plan (1) Psychosis: Status: Acute Code(s): F29 - Unspecified psychosis not due to a substance or known physiological condition (2) Trauma and stressor-related disorder: Status: Acute Code(s): F43.9 - Reaction to severe stress, unspecified (3) Cocaine use disorder: Status: Acute Code(s): F14.10 - Cocaine abuse, uncomplicated Plan Mr. Salazar is a 49 yo SWM with h/o schizophrenia who presented to the [facility] ED due to . He was transferred to [facility] after undergoing medical clearance for safety and stabilization. U tox was positive for cocaine. CT head w/o contrast was done at [facility] due to the AH, which showed no acute intracranial process. Plan: Admitted to M3 for safety and stabilization Signed CV 15 min safety checks Admission medical consult pending Labs, EKG & CT head reviewed from [facility] Meds: Continue mirtazapine 45 mg and prazosin 1 mg qhs Start quetiapine 50 mg qhs PRNs- trazodone 50-100 mg qhs for insomnia, quetiapine 50 mg tid for agitation a nd/or severe anxiety, hydroxyzine 25 mg q 6 hrs prn for mild anxiety 02/22: Pt reports improvement in anxiety, sleep, AH. Experienced UE pain/restlessness x 2-3 hrs yesterday prior to taking his meds. he wondered if it's related to w/d vs med SE. Vitals stable. Will add clonidine 0.1 mg tid prn for anxiety and/or w/d sx (from cocaine) 02/23: D/C'd quetiapine per pt request, felt like it caused akathisia. Otherwise continue current tx plan. 02/24: Feels better physically since d/c'ing the quetiapine. continue current tx plan Patient educated on: medication risk/benefits Informed Consent: understands Reason for continued inpatient stay Substantial Risk for: med/psych decompensation Time Spent With Patient Time: Total time managing care of this patient today ____ minutes.
[2025-02-24 20:00] VITALS: BP 129/88; PULSE 85; RESP 16; TEMP 37.1; O2SAT 97
[2025-02-25 08:00] VITALS: BP 148/85; PULSE 62; RESP 16; TEMP 36.3; O2SAT 98
--- NOTE | 2025-03-23 15:20 | P.DS_ITS ---
DS: Providers Provider Date of Service: 02/25/25 Date of admission: 02/20/25 20:02 Date of discharge: 02/25/25 Primary care physician: None Physician Attending physician on admission: Roxana Velazquez Consults: 02/21/25 08:00 Consult to Hospitalist Routine Comment: Consulting Provider: [facility] Reason For Exam: Admission Physical Attending physician on discharge: Roxana Velazquez DS: Diagnosis Discharge Diagnosis (1) Psychosis: Status: Acute (2) Trauma and stressor-related disorder: Status: Acute (3) Cocaine use disorder: Status: Acute DS: Medications Discharge Medications Home Medications: Previous Rx's ?Medication ?Instructions ?Recorded clonidine HCl 0.1 mg tablet 0.1 mg PO BEDTIME PRN anxi ety 02/25/25 and/or insomnia 30 days #30 tabs mirtazapine 45 mg tablet 45 mg PO BEDTIME 30 days #30 tabs 02/25/25 Mental Status Exam Mental Status Exam Narrative: [place] [id number] Psychiatric-Progress Note (In) Signed Patient: Eriberto Salazar MR#: [id number] : 1975 Acct:[id number] Age/Sex: 49 / M Appearance: disheveled, good eye contact Attitude:Cooperative Speech: Fluent and wnl in regard to volume, tone, prosody Motor activity: Calm and without any tics, tremors or dyskinesias. Steady gait Mood: okay Affect: appropriate, reactive, brightens up appropriately Thought process: goal directed Thought content: denies SI/violent ideation Perception: denies AH/VH. does not appear to respond to internal stimuli Insight: fair Judgment: fair DS: Summary Hospital Course Hospital Course: Mr. Salazar is a 49 yo SWM with h/o schizophrenia who presented to the [facility] ED due to AH. He was transferred to [facility] after undergoing medical clearance for safety and stabilization. U tox was positive for cocaine. CT head w/o contrast was done at [facility] due to the AH, which showed no acute intracranial process. Plan: Admitted to for safety and stabilization Signed CV 15 min safety checks Admission medical consult pending Labs, EKG & CT head reviewed from [facility] Meds: Continue mirtazapine 45 mg and prazosin 1 mg qhs Start quetiapine 50 mg qhs PRNs- trazodone 50-100 mg qhs for insomnia, quetiapine 50 mg tid for agitation and/or severe anxiety, hydroxyzine 25 mg q 6 hrs prn for mild anxiety 02/22: Pt reports improvement in anxiety, sleep, AH. Experienced UE pain/restlessness x 2-3 hrs yesterday prior to taking his meds. he wondered if it's related to withdrawal vs med side effects. Vitals stable. Will add clonidine 0.1 mg tid prn for anxiety and/or w/d sx (from cocaine) 02/23: D/C'd quetiapine per pt request, felt like it caused akathisia. Otherwise continue current tx plan. 02/24: Feels better physically since d/c'ing the quetiapine. Reports significant improvement in mood, denies current AH. Denies SI/violent ideation throughout hospitalization. No behavioral issues. Pt agreeable w/ plan to d/c tomorrow Status at Discharge Functional status at discharge: independent ambulation Overall status at discharge: patient is back to baseline Time Spent with Patient Time attestation: Total time managing care of this patient today ____ minutes. Time spent: Less than 30 minutes Discharge Plan Discharge Anticipated Discharge Date/Time: 02/25/25 12:00 Patient Disposition: Half-Way Discharge Diagnosis: Unspecified psychotic disorder Posttraumatic stress disorder Cocaine use disorder Referrals: [facility] [Provider Group] - 1 Week Referral Note: 02-25-25 [facility] was added to patients chart. Please call [phone] to schedule a follow up appt within 7-10 days of discharge. No release or PCP on file Discharge Medications: New clonidine HCl 0.1 mg Tablet 0.1 mg PO BEDTIME PRN (Reason: anxiety and/or insomnia) 30 Days Qty: 30 0RF Protocol: Hold for SBP/HR < HOLD for SBP < : 90 HOLD for HR < : 60 mirtazapine 45 mg tablet 45 mg PO BEDTIME 30 Days Qty: 30 0RF Discontinued clonidine HCl 0.1 mg tablet PO prazosin 1 mg capsule 1 mg PO BEDTIME mirtazapine 30 mg tablet 30 mg PO BEDTIME mirtazapine 15 mg tablet 15 mg PO BEDTIME clonidine HCl 0.1 mg tablet PO DAILY Discharge Orders: Discharge Order (Routine); Ordered 02/25/25 Ordered By: Monica Mc Diet: Regular diet Activity on Discharge: No Restrictions Stand Alone Forms: Patient Portal Discharge page, Community Support Print Language: Tajik Care Plan Goals: Maintain safe behaviors Practice coping skills Take medications as prescribed Continue to pursue sobriety Maintain regular follow-ups with your outpatient providers Health Concerns: PTSD, depression, auditory hallucinations cocaine use disorder Plan of Treatment: Follow up with your psychiatric provider, PCP and other outpatient providers Take your medication as prescribed Assessment: Risk assessment at the time of discharge: Patient was interviewed on the day of discharge and found to be fully oriented, without any SI or violent ideation. Pt has improved insight and judgment and plans to continue treatment Pt is not at high risk of harm to self or others and has a safety plan that includes presenting to the closest ER or calling 911 if feeling unsafe. Pt has been observed closely by unit staff and has not engaged in any behaviors that suggest dangerous to self or others and has demonstrated appropriate bheaviors and impulse control. Discharge Date/Time: 02/25/25 13:08
== END 2025-02-25 13:08 | disposition home or self-care (01) | DRG 885 ==
PROVIDERS: Clinical Nurse Specialist Psychiatric/Mental Health, Adult; Admitting Provider Psychiatry & Neurology Psychiatry; Visit Provider Psychiatry & Neurology Psychiatry
DX: F29 Unspecified psychosis not due to a substance or known physiological condition (principal); Z59.02 Unsheltered homelessness; F43.9 Reaction to severe stress, unspecified; F14.10 Cocaine abuse, uncomplicated; Z79.899 Other long term (current) drug therapy
CPT/HCPCS: 36415; 80061; 82607; 82746; 83036; 83735; 84439; 84443

== ENCOUNTER → 2025-02-20 20:02 | Outpatient (BNV) | payer MEDICARE, SELFPAY | PROVIDERS: Admitting Provider Psychiatry & Neurology Psychiatry; Visit Provider Nurse Practitioner Family | DX: F29 Unspecified psychosis not due to a substance or known physiological condition (principal) | CPT/HCPCS: 99221 ==

== ENCOUNTER → 2025-02-20 20:02 | Outpatient (BNV) | payer MEDICARE, SELFPAY | PROVIDERS: Admitting Provider Psychiatry & Neurology Psychiatry; Visit Provider Psychiatry & Neurology Psychiatry | DX: F29 Unspecified psychosis not due to a substance or known physiological condition (principal); F14.10 Cocaine abuse, uncomplicated; F43.9 Reaction to severe stress, unspecified | CPT/HCPCS: 90792; 99232 ==